=== PATIENT | female | born 1955 | race Caucasian/White ===

== ENCOUNTER 2020-11-30 14:48 | Emergency (ER) | payer MEDICARE, OTHER ==
[~2020-11-30] VITALS: Ht 170.2 cm; Wt 76.0 kg
[2020-11-30 14:50] VITALS: BP 122/75
--- NOTE | 2020-11-30 15:31 | PHYS DOC ---
General Adult EDM: Chief Complaint: WOUND CHECK HPI: HPI: Patient is a 65-year-old female who presents with wound check after a pop. 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 Patient states "the wound has continued to open up and I was concerned". Pain is exacerbated with walking and improved when sitting still. Denies swelling, drainage, fever. (NAIDA BUSTOS APRN) Review of Systems: Review of Systems: Constitutional: Denies fever or chills Eyes: Denies change in visual acuity HENT: Denies nasal congestion or sore throat Respiratory: Denies cough or shortness of breath Cardiovascular: Denies chest pain or edema GI: Denies abdominal pain, nausea, vomiting, bloody stools or diarrhea : Denies dysuria Musculoskeletal: Reports left knee pain Integument: Open wound behind left knee Neurologic: Denies headache, focal weakness or sensory changes Endocrine: Denies polyuria or polydipsia Lymphatic: Denies swollen glands Psychiatric: Denies depression or anxiety (NAIDA BUSTOS APRN) Physical Exam: PE: Constitutional: Well developed, well nourished, no acute distress, non-toxic appearance. [] HENT: Normocephalic, atraumatic, bilateral external ears normal, oropharynx m oist, no oral exudates, nose normal. [] Eyes: PERRLA, EOMI, conjunctiva normal, no discharge. [] Neck: Normal range of motion, no tenderness, supple, no stridor. [] Cardiovascular:Heart rate regular rhythm, no murmur [] Lungs & Thorax: Bilateral breath sounds clear to auscultation [] Abdomen: Bowel sounds normal, soft, no tenderness, no masses, no pulsatile masses. [] Skin: Warm, dry, no discharge, no redness, open wound behind left knee Back: No tenderness, no CVA tenderness. [] Extremities: Left leg tenderness, ROM intact, no edema. [] Neurologic: Alert and oriented X 3, normal motor function, normal sensory function, no focal deficits noted. [] Psychologic: Affect normal, judgement normal, mood normal. [] (NAIDA BUSTOS APRN) EKG: EKG: [] (NAIDA BUSTOS APRN) Radiology/Procedures: Radiology/Procedures: [] (NAIDA BUSTOS APRN) Heart Score: C/O Chest Pain: No Risk Factors: Risk Factors: DM, Current or recent (<one month) smoker, HTN, HLP, family history of CAD, obesity. Risk Scores: Score 0 - 3: 2.5% MACE over next 6 weeks - Discharge Home Score 4 - 6: 20.3% MACE over next 6 weeks - Admit for Clinical Observation Score 7 - 10: 72.7% MACE over next 6 weeks - Early Invasive Strategies (NAIDA BUSTOS APRN) Course & Med Decision Making: Course & Med Decision Making Pertinent Labs and Imaging studies reviewed. (See chart for details) [] 65-year-old female presents with wound check after she had a pop. 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 Patient states that the wound has opened since she was seen by surgeon on . No drainage, swelling. Patient is afebrile. Explained to patient that I will be sending her home with an antibiotic to prevent infection. Patient will need to call her PCP on Wednesday for further management. Explained to patient the importance of keeping the wound clean and dry. Patient given strict return precautions and signs of infection. Patient is appreciative and okay with discharge plan. (NAIDA BUSTOS APRN) Course & Med Decision Making I oversaw on the above date of service of this patient. This patient was evaluated, examined, treated, and dispositioned from the emergency department by the mid-level practitioner. Although I was working at the time and available for consultation, no assistance was requested and I did not see or immediately direct the care of this patient. I reviewed note and agree to findings, plan of care, and disposition as stated. Electronically signed, Alvarez Malcolm DO (ALVAREZ MALCOLM DO) Emmy Disclaimer: Emmy Disclaimer: This electronic medical record was generated, in whole or in part, using a voice recognition dictation system. (NAIDA BUSTOS APRN) Departure Departure: Impression: Primary Impression: Encounter for post surgical wound check Additional Impression: Cellulitis Qualified Codes: L03.818 - Cellulitis of other sites Disposition: HOME / SELF CARE / HOMELESS Condition: STABLE Referrals: [facility] (PCP) Patient Instructions: Wound Check Additional Instructions: You were seen in the emergency room for wound check after surgery repair. I am sending you home with a prescription for Keflex to prevent infection. Please call your PCP on Wednesday and make a follow-up appointment for further management. Please return the emergency room if you have signs of infection such as increasing pain, swelling, redness, warmth and fevers. EMERGENCY DEPARTMENT GENERAL DISCHARGE INSTRUCTIONS Thank you for coming to [facility] (ED) today and trusting us with you care. We trust that you had a positivie experience in our Emergency Department. If you wish to speak to the department management, you may call the director at [phone]. YOUR FOLLOW UP INSTRUCTIONS ARE FOLLOWS: 1. Do you have a private Doctor? If you do not have a private doctor, please ask for a resource list of physicians or clinics that may be able to assist you with follow up care. 2. The Emergency Physician has interpreted your x-rays. The X-Ray specialist will also review them. If there is a change in the findings, you will be notified in 48 hours when at all possible. 3. A lab test or culture has been done, your results will be reviewed and you will be notified if you need a change in treatment. ADDITIONAL INSTRUCTIONS AND INFORMATION: 1. Your care today has been supervised by a physician who is specially trained in emergency care. Many problems require more than one evaluation for a complete diagnosis and treatment. We recommend that you schedule your follow up appointment as recommended to ensure complete treatment of you illness or injury. If you are unable to obtain follow up care and continue to have a problem, or if your condition worsens, we recommend that you return to the ED. 2. We are not able to safely determine your condition over the phone nor are we able to give sound medical advice over the phone. For these safety reasons, if you call for medical advice we will ask you to come to the ED for further evaluation. 3. If you have any questions regarding these discharge instructions please call the ED at [phone]. SAFETY INFORMATION: In the interest of safety, wellness, and injury prevention; we encourage you to wear your sealbelt, if you smoke; quite smoking, and we encourage family to use a protective helmet for bicycling and other sporting events that present an increased risk for head injury. IF YOUR SYMPTOMS WORSEN OR NEW SYMPTOMS DEVELOP, OR YOU HAVE CONCERNS ABOUT YOUR CONDITION; OR IF YOUR CONDITION WORSENS WHILE YOU ARE WAITING FOR YOUR FOLLOW UP APPOINTMENT; EITHER CONTACT YOUR PRIMARY CARE DOCTOR, THE PHYSICIAN WHOSE NAME AND NUMBER YOU WERE GIVEN, OR RETURN TO THE ED IMMEDIATELY. Scripts Cephalexin (CEPHALEXIN) 500 Mg Tablet 1 TAB PO QID for CELLULITIS for 5 Days, #20 TAB Prov: NAIDA BUSTOS APRN 11/30/20 NAIDA BUSTOS APRN Nov 30, 2020 15:31 ALVAREZ MALCOLM DO Dec 01, 2020 07:18
[2020-11-30] MEDS ORDERED: CEPH500T PO (15:43)
== END 2020-11-30 15:50 | disposition home or self-care (01) ==
LOC: ER 14:48
DX: L03.116 Cellulitis of left lower limb (principal); Z48.01 Encounter for change or removal of surgical wound dressing
CPT/HCPCS: 99283

== ENCOUNTER → 2021-05-28 | Outpatient (CLI) | payer MEDICARE, OTHER ==
[~2021-05-28] MED LIST: CEPH500T PO
--- NOTE | 2021-05-28 15:55 | RAD ---
Bilateral digital screening mammogram to include digital breast tomosynthesis (3-D mammography) 05/28 CLINICAL HISTORY: Screening study. Digital MLO and CC mammograms of both breasts were obtained. Additionally digital breast tomosynthesi s images (3-D mammography) of both breasts in the CC and MLO projections were obtained. Comparison study is dated 02/09/2018. The breast parenchyma is composed of scattered fibroglandular densities which could obscure a lesion on mammography (breast density B). No spiculated mass is seen. No malignant appearing calcification o r area of architectural distortion is noted. Digital breast tomosynthesis images demonstrate no spiculated mass. No malignant appearing calcificat ion is seen. Impression: BI-RADS Category 1: Negative. There is no mammographic evidence of malignancy. Routine y early screening mammography is recommended for follow-up. This examination was reviewed with the aid of computer-aided detection. A mammogram does not have 100% sensitivity and therefore a negative imaging study should not delay fu rther work up of a suspicious abnormality. Patient information is entered into the reminder system with a target due date for the next screening mammogram of 05/28/2022 "Our facility is accredited by the [employer] Mammography Program." Electronically signed by: Wicho Lozada MD (05/28/2021 3:52 PM) [facility]
== END ==
LOC: MAMMO 13:44
PROVIDERS: ATTEND Nurse Practitioner Family
DX: Z12.31 Encounter for screening mammogram for malignant neoplasm of breast (principal)
CPT/HCPCS: 77063; 77067